=== PATIENT | male | born 1970 | race Caucasian/White ===

== ENCOUNTER 2019-04-29 17:09 | Emergency (ER) | payer OTHER ==
[~2019-04-29] VITALS: Ht 185.4 cm; Wt 89.0 kg
[2019-04-29 17:43] VITALS: BP 123/82
[2019-04-29] MEDS ORDERED: HYDROCODONE/APAP 7.5/325MG 1 TAB TABLET PO ONE (18:30)
== END 2019-04-29 19:07 | disposition home or self-care (01) ==
LOC: ER 17:36
DX: M54.12 Radiculopathy, cervical region (principal); Z98.890 Other specified postprocedural states
CPT/HCPCS: 99282; Z7610